=== PATIENT | female | born 1960 | race Caucasian/White ===

== ENCOUNTER → 2019-03-10 | Outpatient (CLI) | payer BC ==
[~2019-03-10] VITALS: Ht 172.7 cm; Wt 64.9 kg
[~2019-03-10] MED LIST: ASPIR 8181 MG PO; CENTRUM SILVER1 EAC4 PO; KLOR-CON20 ME1 PO; LASIX 20 MG TAB20 MG PO; LOSARTAN-HCTZ1 EAC3 PO
[2019-03-10 12:36] VITALS: BP 148/74
== END | disposition home or self-care (01) ==
LOC: CATH 07:09
DX: I87.303 Chronic venous hypertension (idiopathic) without complications of bilateral lower extremity (principal); I87.2 Venous insufficiency (chronic) (peripheral); I87.1 Compression of vein; R60.0 Localized edema; I10 Essential (primary) hypertension; M19.90 Unspecified osteoarthritis, unspecified site; Z96.643 Presence of artificial hip joint, bilateral; Z79.899 Other long term (current) drug therapy; Z79.82 Long term (current) use of aspirin

== ENCOUNTER → 2019-03-15 | Outpatient (CLI) | payer BC ==
--- NOTE | 2019-03-15 13:31 | NUR ---
PT ARRIVES VIA PRIVATE VEHICLE FOR ENDOVENOUS LASER ABLATION. PT DENIES AND PAIN AND THIS TIME. CONSENT FORM SIGNED. PT RESTING IN BED COMFORTABLY AND WILL CONTINUE TO MONITOR.
--- NOTE | 2019-03-15 18:14 | NUR ---
PATIENT DISCHARGED WITH BILATERAL LEG WRAPPED WITH STOCKINGS, DISCHARGE INSTRUCTIONS GIVEN TO PATIENT AND INFORMED OF MEDICATIONS AT PHARMACY. VSS AND NO PAIN. NO FURTHER QUESTIONS.
== END | disposition home or self-care (01) ==
LOC: CATH 11:35
DX: I87.322 Chronic venous hypertension (idiopathic) with inflammation of left lower extremity (principal); I87.2 Venous insufficiency (chronic) (peripheral); R60.0 Localized edema; Z79.82 Long term (current) use of aspirin; Z79.899 Other long term (current) drug therapy